=== PATIENT | female | born 1980 | race Two or more races ===

== ENCOUNTER 2024-07-31 15:07 | Emergency (ER) | payer OTHER, MEDICAID, SELFPAY ==
[2024-07-31 15:17] VITALS: BP 144/95; PULSE 64; RESP 18; TEMP 36.9; O2SAT 100; BMI 39.5
--- NOTE | 2024-07-31 15:18 | XR_ITS ---
Examination: CT brain head without contrast. 2-D sagittal coronal reconstructions Date and time of exam:July 31, 2024 at 1843 hours INDICATIONS: Headaches beginning 3 days ago COMPARISON: December 08, 2021 CTDI: vol (mGy):53.2 DLP: (mGycm):1019 Technique: Multiple CT axial sections of the brain have been obtained, 5 mm slice thickness. Contrast has not been administered. 2-D sagittal, coronal reconstructions have been obtained Low dose protocols were performed. One or more of the following dose reduction techniques were used; automated exposure control, adjustment of the mA and/or KV according to patient size, use of iterative reconstruction technique. Findings: No significant ventricular enlargement. Intra-axial or extra-axial hemorrhage density is not seen. No mass effect or midline shift Basal cisterns are not remarkable. Fourth ventricle is midline. Cranial vault intact. Impression: Negative for acute hemorrhage, mass effect or midline shift Advise clinical correlation follow-up accordingly
--- NOTE | 2024-07-31 15:19 | PD.EDRME ---
Rapid Medical Screening Exam RME Arrival date/time: 07/31/24 15:07 44-year-old female presents emergency department complains of headache and feeling unwell for the last 2 days Chief Complaint: Headache Time Seen by Provider: 07/31/24 15:15 Vital signs: Vital Signs Temperature 98.4 F 07/31/24 15:17 Pulse Rate 64 07/31/24 15:17 Respiratory Rate 18 07/31/24 15:17 Blood Pressure 144/95 H 07/31/24 15:17 Pulse Oximetry (%) 100 07/31/24 15:17 Oxygen Delivery Method Room Air 07/31/24 15:17
[2024-07-31 15:44] LABS: Basophils % (Auto) 0 % (0-2.5); Eosinophils # (Auto) 0.2 Thou/mm3 (0.0-0.5); Eosinophils % (Auto) 3 % (0-10); Hematocrit 36.2 % (36.0-46.0); Hemoglobin 11.5 g/dL (12.0-16.0); Immature Granulocytes % (Auto) 0 % (0-0); Immature Granulocytes Auto 0.01 Thou/mm3 (0.00-0.00); Lymphocytes # (Auto) 2.1 Thou/mm3 (1.0-4.8); Lymphocytes % (Auto) 31 % (10-50); Mean Corpuscular HGB Conc 31.8 g/dl (31.0-37.0); Mean Corpuscular Hemoglobin 25.1 pg (25.0-35.0); Mean Corpuscular Volume 79 fL (80-100); Monocytes # (Auto) 0.6 Thou/mm3 (0.0-0.8); Monocytes % (Auto) 10 % (0-12); Neutrophils # (Auto) 3.9 Thou/mm3 (1.8-7.7); Neutrophils % (Auto) 57 % (37-80); Nucleated Red Blood Cell % 0 /100 WBC (0); Platelet Count 318 Thou/mm3 (140-440); RDW Standard Deviation 44.7 fL (36.4-46.3); Red Blood Count 4.59 Miln/mm3 (4.00-5.20); White Blood Count 6.8 Thou/mm3 (3.6-11.0)
[2024-07-31 15:55] LABS: Glucose Estimated Average 105 mg/dL (80-131); Hemoglobin A1C 5.3 % Hgb (4.8-6.0)
[2024-07-31 16:03] LABS: Alanine Aminotransferase 12 U/L (10-49); Albumin, Serum 4.2 gm/dL (3.5-5.0); Albumin/Globulin Ratio 1.4 (1.2-2.2); Alkaline Phosphatase 88 U/L (46-116); Anion Gap 7 (7-16); Aspartate Amino Transferase 15 U/L (0-34); BUN/Creatinine Ratio 21 Ratio (12-20); Bilirubin,Total 0.3 mg/dL (0.3-1.2); Blood Urea Nitrogen 15 mg/dL (9-23); Calcium 9.2 mg/dL (8.3-10.6); Calcium (Corrected) 9.2 mg/dL (8.5-10.1); Carbon Dioxide 25.4 mMol/L (20.0-31.0); Chloride 105 mMol/L (98-107); Creatinine (Component) 0.7 mg/dL (0.6-1.3); Estimated Creatinine Clearance 139.9 mL/min (>60); Glucose 87 mg/dL (74-106); Lipase 36 U/L (12-53); Osmolality,Calculated 273 (275-295); Potassium 4.4 mMol/L (3.4-5.1); Sodium 137 mMol/L (136-145); Total Protein 7.2 gm/dL (5.7-8.2); eGFR > 60 See Note
[2024-07-31 16:30] LABS: Collection Type, Urine Clean Catch
[2024-07-31 16:37] LABS: HCG Qualitative,Urine Negative
[2024-07-31 16:38] LABS: Bilirubin,Urine Negative (Negative); Blood,Urine Negative (Negative); Clarity,Urine Clear (Clear/Hazy); Color,Urine Lt-Yellow (Lt Yel-Yel); Culture Indicated,Urine Not Indicated; Glucose, Urine Negative (Negative); Ketones,Urine Negative (Negative); Leukocyte Esterase,Urine Positive (Negative); Nitrite,Urine Negative (Negative); Protein,Urine Negative (Neg - Trace); RBC,Urine 2 /hpf (0-3); Specific Gravity,Urine 1.019 (1.001-1.035); Squamous Epithelial Cell,Urine 1 /hpf (0-5); Urobilinogen,Urine Negative mg/dL (0.0-1.0); WBC,Urine 1 /hpf (0-5)
--- NOTE | 2024-07-31 20:17 | PD.EDADULT ---
ED General RME/HPI General Chief complaint: Headache Stated complaint: SHARP HEADACHE X WEDNESDAY OFF AND ON Time Seen by Provider: 07/31/24 15:15 Arrival date/time: 07/31/24 15:07 CC: Headache HPI intermittent for the past 4 days the right parietal side mild light sensitivity noise sensitivity and mild nausea without vomiting. History of headaches 1 every couple of months . Patient is not in any acute distress but in mild discomfort localized pain is 6 to an 8 on a 10 scale. Currently no nausea but mild light sensitivity. RME / HPI RME / HPI narrative: 07/31/24 15:07 44-year-old female presents emergency department complains of headache and feeling unwell for the last 2 days Related Data Home Medications ?Medication ?Instructions ?Recorded ?Confirmed alogliptin 25 mg tablet 25 mg PO QAM 01/19/21 12/08/21 atorvastatin 10 mg tablet 10 mg PO DAILY 01/19/21 12/08/21 lisinopril 20 mg tablet 20 mg PO DAILY 01/19/21 12/08/21 loratadine 10 mg tablet 10 mg PO QAM 01/19/21 12/08/21 montelukast 10 mg tablet 10 mg PO DAILY 01/19/21 12/08/21 omeprazole 20 mg capsule,delayed 20 mg PO HS 01/19/21 12/08/21 release Previous Rx's ?Medication ?Instructions ?Recorded tramadol 37.5 mg-acetaminophen 325 1 tab PO TID PRN pain #15 tabs 12/08/21 mg tablet (Ultracet) sumatriptan 5 mg/actuation nasal 20 mg intranasal Q2H PRN migraine 07/31/24 spray headache #6 ea Allergies Allergy/AdvReac Type Severity Reaction Status Date / Time aspirin Allergy Severe SWELLING, Verified 07/31/24 15:08 HIVES ibuprofen Allergy Severe SWELLING, Verified 07/31/24 15:08 HIVES naproxen Allergy Severe SWELLING, Verified 07/31/24 15:08 HIVES Review of Systems Review of Systems Narrative Review of Systems: GEN: No fever, no chills, no weight loss EYES: No discharge, no visual changes, no pain HEENT: No ear pain, no congestion, no sore throat PULM: No shortness of breath, no cough, no congestion CV: No chest pain, no dyspnea on exertion, no palpitations GI: No nausea, no vomiting, no diarrhea, no pain, no constipation : No frequency, no urgency, no dysuria MUSC/SKEL: No joint pain, no back pain SKIN: No rash PSYCH: No hallucinations, no depression HEME/LYMPH: No easy bleeding or bruising tendencies NEURO: No weakness, + headache Past Medical History Past Medical History NEUROLOGIC: Negative Neurological Disorders CARDIAC: Positive Cardiac Disorders and Hypertension; Negative Congestive Heart Failure RESPIRATORY: Negative Chronic Obstructive Pulmonary Disease (COPD) GASTROINTESTINAL: Positive Gastrointestinal Disorders, Gall Bladder Disease and Obesity GENITOURINARY: Negative Genitourinary Disorders or Renal Disease MUSCULOSKELETAL: Positive Musculoskeletal Disorders ENDOCRINE: Positive Endocrine Disorders and Diabetes Mellitus Type 2; Negative Diabetes Mellitus Type 1 HEMATOLOGIC: Negative Blood Disorders OTHER HISTORY: Negative Autoimmune Disease Family History FAMILY HISTORY: Positive Family Cardiac Disorders, Family Cancer and Family Surgery; Negative Family Psychiatric Problems, Family Respiratory Disorders, Family Gastrointestinal Problems or Family Anesthesia Reaction Surgical History SURGICAL: Positive Gastric Bypass Surgery Social History SMOKING STATUS: Never smoker SUBSTANCE USE: does not use ED Exam Narrative Physical exam: [General: Obese not in in any acute distress Head normocephalic HEENT: Eyes: Pupils are PERRLA EOMs are intact no nystagmus mouth pink moist membranes uvula is midline swallow symmetrical. Within acceptable limits Neck is supple nontender Chest equal chest rise nontender to palpation Respiratory: Clear to auscultation no wheezes crackles or rubs CV: Rate rhythm is regular no murmurs rubs or clicks Abdomen is distended secondary to body habitus soft nontender no masses positive bowel sounds all 4 quadrants Back: No CVA tenderness no spinous process tenderness from cervical spine thoracic and lumbar spine Skin: Intact no petechiae rash induration ulceration or crepitus Extremities: Moving all extremity against resistance cap refill less than 2 seconds neurosensory intact Neuro: Awake alert oriented x3 Glascow coma 15 no focal deficits] Course Quality Measures none Orders Category Date Time Status CT head/brain wo con Stat Exams 07/31/24 15:18 Completed A1C [Glycohemoglobin w (eAG)] Stat Lab 07/31/24 15:31 Completed CBC Stat Lab 07/31/24 15:31 Completed Comprehensive Metabolic Panel Stat Lab 07/31/24 15:31 Completed HCG Qualitative,Urine Stat Lab 07/31/24 16:02 Completed Lipase Stat Lab 07/31/24 15:31 Completed UA, C/S IF [Urinalysis, C/S if Indicated] Stat Lab 07/31/24 16:02 Completed Dexamethasone Inj [Decadron Inj] Med 07/31/24 20:16 Once 4 mg IM X1 ONE DiphenhydrAMINE INJ [Benadryl Inj] Med 07/31/24 20:16 Once 25 mg IM X1 ONE Prochlorperazine Inj [Compazine Inj] Med 07/31/24 20:16 Once 10 mg IM X1 ONE Vital Signs Vital signs: Vital Signs Temperature 98.4 F 07/31/24 15:17 Pulse Rate 64 07/31/24 15:17 Respiratory Rate 18 07/31/24 15:17 Blood Pressure 144/95 H 07/31/24 15:17 Pulse Oximetry (%) 100 07/31/24 15:17 Oxygen Delivery Method Room Air 07/31/24 15:17 [facility] Patient data External records reviewed:: [facility] previous records Clinical information provided by:: patient Social determinants that could affect healthcare access:: none Patient has the following chronic illnesses:: Hyperlipidemia hypertension How is presenting disease/condition affected by chronic disease/condition?: uneffected by Evaluation data The following diagnostics were reviewed and interpreted by me:: lab results Lab and/or radiology exams considered but not ordered:: CBC shows no acute leukocytosis anemia thrombocytopenia CMP shows no acute electrolyte imbalances renal impairment transaminitis or T. bili elevation Urine is negative for any acute finding that suggestive of a urinary tract infection Interpretation Summary: Most likely a migraine atypical not classic Medications Medications considered but not ordered:: None Medication administrations:: Medication Administration History Prochlorperazine Edisylate (Prochlorperazine Inj 5 Mg/Ml Vial 2 Ml) 10 mg IM X1 ONE; Protocol Stop: 07/31/24 20:17 None Consultations Consultation(s) initiated? (list below): No Diagnosis Differential Diagnosis ED Complaint MDM: Cluster headache tension headache migraine Most likely diagnosis given after review of the tests above:: Migraine Admission Indicated Admission indicated?: not indicated Explain why admission is indicated or not indicated:: Stable for outpatient follow-up Admission Request Was there a request for admission?: No Disposition Plan Disposition Plan: Discharge Discharge Attestation Discharge Attestation: The patient and all family members were given an opportunity to ask questions and understood the discharge instructions. Discharge instructions specifically effects, indications for sooner follow up or return to the emergency department, and the expected course of current diagnosis. Patient condition: Stable Medical Decision Making Differential Diagnosis Differential Diagnosis: Cluster headache tension headache migraine Lab Data 07/31/24 15:31 07/31/24 15:31 Labs: Lab Results 07/31/24 07/31/24 Range/Units 15:31 16:02 WBC 6.8 (3.6-11.0) Thou/mm3 RBC 4.59 (4.00-5.20) Miln/mm3 Hgb 11.5 L (12.0-16.0) g/dL Hct 36.2 (36.0-46.0) % MCV 79 L (80-100) fL MCH 25.1 (25.0-35.0) pg MCHC 31.8 (31.0-37.0) g/dl RDW Std Deviation 44.7 (36.4-46.3) fL Plt Count 318 (140-440) Thou/mm3 Neut % (Auto) 57 (37-80) % Lymph % (Auto) 31 (10-50) % Wirt % (Auto) 10 (0-12) % Eos % (Auto) 3 (0-10) % Baso % (Auto) 0 (0-2.5) % Neut # (Auto) 3.9 (1.8-7.7) Thou/mm3 Lymph # (Auto) 2.1 (1.0-4.8) Thou/mm3 Wirt # (Auto) 0.6 (0.0-0.8) Thou/mm3 Eos # (Auto) 0.2 (0.0-0.5) Thou/mm3 Baso # (Auto) 0.0 (0.0-0.2) Thou/mm3 Immature Gran # (Auto) 0.01 H (0.00-0.00) Thou/mm3 Absolute Nucleated RBC 0.00 (0.00-0.00) Thou/mm3 Immature Gran % 0 (0-0) % Nucleated RBC % 0 (0) /100 WBC Sodium 137 (136-145) mMol/L Potassium 4.4 (3.4-5.1) mMol/L Chloride 105 (98-107) mMol/L Carbon Dioxide 25.4 (20.0-31.0) mMol/L Anion Gap 7 (7-16) BUN 15 (9-23) mg/dL Creatinine 0.7 (0.6-1.3) mg/dL Estim Creat Clear Calc 139.9 (>60) mL/min eGFR > 60 (60 - ) See Note BUN/Creatinine Ratio 21 H (12-20) Ratio Glucose 87 (74-106) mg/dL Estimated Ave Glu mg/dL 105 (80-131) mg/dL Hemoglobin A1c 5.3 (4.8-6.0) % Hgb Calculated Osmolality 273 L (275-295) Calcium 9.2 (8.3-10.6) mg/dL Corrected Calcium 9.2 (8.5-10.1) mg/dL Total Bilirubin 0.3 (0.3-1.2) mg/dL AST 15 (0-34) U/L ALT 12 (10-49) U/L Alkaline Phosphatase 88 (46-116) U/L Total Protein 7.2 (5.7-8.2) gm/dL Albumin 4.2 (3.5-5.0) gm/dL Globulin 3.0 (2.3-3.5) gm/dL Albumin/Globulin Ratio 1.4 (1.2-2.2) Lipase 36 (12-53) U/L Ur Collection Type Clean Catch Urine Color Lt-Yellow (Lt Yel-Yel) Urine Clarity Clear (Clear/Hazy) Urine pH 6.0 (5.0-7.0) Ur Specific [place] 1.019 (1.001-1.035) Urine Protein Negative (Neg - Trace) Urine Glucose (UA) Negative (Negative) Urine Ketones Negative (Negative) Urine Blood Negative (Negative) Urine Nitrite Negative (Negative) Urine Bilirubin Negative (Negative) Urine Urobilinogen (Auto) Negative (0.0-1.0) mg/dL Ur Leukocyte Esterase Positive (Negative) Urine RBC 2 (0-3) /hpf Urine WBC 1 (0-5) /hpf Ur Squamous Epith Cells 1 (0-5) /hpf Urine Bacteria None (None) Ur Culture Indicated? Not Indicated Urine HCG, Qual Negative Discharge Plan Plan Patient Disposition: HOME (Self Care) Patient condition on transfer: Stable Prescriptions/Referrals Prescriptions/Med Rec: New sumatriptan 5 mg/actuation spray,non-aerosol 20 mg intranasal Q2H PRN (Reason: migraine headache) Qty: 6 0RF Rx Instructions: administer into one nostril as a single dose; if 2nd dose needed,administer into other nostril after at least 2 hrs, NTE 2 doses (40 mg) per episode No Action atorvastatin 10 mg tablet 10 mg PO DAILY Patient Comments: take 1 tablet by mouth every evening lisinopril 20 mg tablet 20 mg PO DAILY Patient Comments: take 1 tablet by mouth twice a day omeprazole 20 mg capsule,delayed release(DR/EC) 20 mg PO HS Patient Comments: take 1 capsule by mouth once daily montelukast 10 mg tablet 10 mg PO DAILY Patient Comments: take 1 tablet by mouth every evening loratadine 10 mg tablet 10 mg PO QAM Patient Comments: take 1 tablet by mouth once daily alogliptin 25 mg tablet 25 mg PO QAM Patient Comments: take 1 tablet by mouth once daily tramadol-acetaminophen [Ultracet] 37.5-325 mg tablet 1 tab PO TID PRN (Reason: pain) Qty: 15 0RF Referrals: Art Donaldson FNP [Primary Care Provider] - In 1 week Problem List Clinical Impression: Migraine Patient/Caregiver Discharge Instructions Other Activity Instructions:: Keep diary of your headaches if they are recurrent use the medication as needed when the headache occurs if there is worsening of symptoms follow-up with your primary care provider. Education Materials: Headache Migraine Triggers Prevent Print Language: Nepalese Stand Alone Forms: Viry Award Info., Patient Portal Info Letter, Work/School Release PA/GOLD RECLAIMER Supervising Physician PA/GOLD RECLAIMER Supervising Physician: Liu Farley ENP
[2024-07-31] MEDS: DiphenhydrAMINE INJ 50 MG/ML VIAL 25 MG IM (20:26)
[2024-07-31] MEDS: PROCHLORPERAZINE INJ 5 MG/ML VIAL 2 ML 10 MG IM (20:34)
[2024-07-31] MEDS: DEXAMETHASONE SOD PHOS INJ 4 MG/ML VIAL IM (20:34)
== END 2024-07-31 21:07 | disposition home or self-care (01) ==
PROVIDERS: Nurse Practitioner Primary Care; Emergency Provider Emergency Medicine; PCP Nurse Practitioner Family
DX: G43.909 Migraine, unspecified, not intractable, without status migrainosus (principal)
CPT/HCPCS: 36415; 70450; 80053; 81001; 81025; 83036; 83690; 85025; 96372; 99284; J0780; J1100; J1200

== ENCOUNTER → 2024-09-20 | Outpatient (CLI) | payer OTHER, MEDICAID, SELFPAY ==
--- NOTE | 2024-09-20 08:15 | XR_ITS ---
Examination: MRI of brain without intravenous contrast. MRI brain with intravenous contrast. Date and time of exam:September 20, 2024 0833 hours INDICATIONS: Headaches posterior left head radiating to the neck blurred vision with syncopal episodes lasting several minutes, dizziness beginning July 23, 2024 Technique: Multiple axial and sagittal images of the brain to been obtained. Siemens high-resolution 1.52 Shelly short bore scanner utilized. Sagittal sections, T1 weighted images, TR 500, TE 14, are performed. Axial sections proton-density and T2-weighted images have been obtained. Inversion recovery axial images, TR 9260, TE 111, TR 2500. Diffusion weighted images, axial sections, TR 4800, TE 128, B value 1000. Axial sections, ADC map, TR 4800, TE 128. Axial and coronal images were also obtained post 20 cc gadolinium administered intravenously. Findings:: Enlargement of the sella turcica is not present. The optic chiasm and infundibular stalk are not remarkable. There is no localized enlargement of the medulla or kailyn. Fourth ventricle and cerebellar tonsils appear normal in position. No subacute area of hemorrhage density is seen. Fourth ventricle is midline. Mass in the cerebellopontine angle region is not evident. 7th and 8th nerve complexes exhibit symmetry Globes are symmetrical Orbital musculature including medial lateral rectus muscles do not exhibit abnormality Increased white matter signal is evident, scattered punctate foci increased signal in the right frontal white matter, FLAIR image 19, FLAIR image 16 Effacement of the cortical sulcal markings is not identified. Mass effect upon the ventricular system is not identified. Diffusion-weighted images demonstrate no focus of restricted diffusion Contrast images demonstrate no abnormal enhancement Impression: Negative for acute hemorrhage mass effect or midline shift No acute infarct Scattered punctate foci increased signal in the right frontal white matter, demyelinating disease pattern
== END | disposition home or self-care (01) ==
PROVIDERS: PCP Psychiatry & Neurology Neurology; Referring Provider Psychiatry & Neurology Neurology; Visit Provider Psychiatry & Neurology Neurology
DX: R90.82 White matter disease, unspecified (principal)
CPT/HCPCS: 70553; A9579

== ENCOUNTER → 2025-01-10 | Outpatient (CLI) | payer OTHER, MEDICAID, SELFPAY ==
--- NOTE | 2025-01-10 15:30 | XR_ITS ---
Examination: Screening digital mammography, bilateral Computer aided detection 3-D breast Tomosynthesis, bilateral Date and time of exam: January 10, 2025 1509 hours Comparison February 25, 2022 Indication: Screening Technique: Nonmagnified MLO, CC views of the breasts to been obtained, reconstructed from 3-D Tomosynthesis images. R2 computer aided detection program utilized for evaluation of suspicious masses and/or abnormal calcifications. 3-D Tomosynthesis images obtained. Findings: Scattered areas of fibroglandular density. Benign calcifications. No interval suspicious masses Impression: BI-RADS category II: Benign Findings. Recommend 1 year follow-up mammogram.
== END | disposition home or self-care (01) ==
LOC: CDIM 14:56
PROVIDERS: Referring Provider Nurse Practitioner Family; Visit Provider Nurse Practitioner Family
DX: Z12.31 Encounter for screening mammogram for malignant neoplasm of breast (principal); R92.323 Mammographic fibroglandular density, bilateral breasts; R92.1 Mammographic calcification found on diagnostic imaging of breast
CPT/HCPCS: 77063; 77067